=== PATIENT | male | born 1965 | race Caucasian/White ===

== ENCOUNTER 2020-08-11 22:31 | Emergency (ER) | payer BC ==
[2020-08-11] MEDS ORDERED: Ketorolac Tromethamine 30 MG/ML VIAL ONE (22:49)
[2020-08-11] MEDS ORDERED: Sodium Chloride 0.9% 1,000 ML ONE (22:49)
[2020-08-11] MEDS ORDERED: Ondansetron PF 4 MG/2 ML Vial ONE (22:49)
[2020-08-11 22:57] LABS: #Basophils 0.1 thou/uL (0.0-0.2); #Eosinphils 0.3 thou/uL (0.0-0.7); #Lymphocytes 2.9 thou/uL (1.20-3.40); #Monocytes 1.2 thou/uL (0.11-0.59); #Neutrophils 6.5 thou/uL (1.40-6.50); %Basophils 1.3 % (0.0-1.0); %Eosinophils 2.7 % (0.0-10.0); %Monocytes 11.2 % (0.0-10.0); %Neutrophils 58.7 % (42.0-75.0); Hemoglobin 15.6 g/dL (14.0-18.0); Mean Corpuscular HGB CONC 33.8 g/dL (32.0-36.0); Mean Corpuscular Hemoglobin 29.7 pg (27.0-31.0); Mean Corpuscular Volume 87.9 fL (78.0-98.0); Platelet Count 316 thou/uL (130-400); Red Blood Cell (RBC) Count 5.25 mill/uL (4.70-6.10); White Blood Cell (WBC) Count 11.1 thou/uL (4.8-10.8)
[2020-08-11 23:12] LABS: ALT (SGPT) 90 U/L (8-55); AST (SGOT) 86 U/L (5-34); Albumin 4.4 g/dL (3.5-5.0); Alkaline Phosphatase 33 U/L (40-110); Anion Gap 17 mmol/L (10-20); BUN (Urea Nitrogen) 15 mg/dL (8.4-25.7); Bilirubin, Total 0.3 mg/dL (0.2-1.2); Calc. Creatinine Clearance 0 mL/min (70-130); Calcium 9.4 mg/dL (7.8-10.44); Carbon Dioxide 20 mmol/L (22-29); Chloride 106 mmol/L (98-107); Globulin 2.5 g/dL (2.4-3.5); Glucose 131 mg/dL (70-105); Lipase 86 U/L (8-78); Potassium 4.3 mmol/L (3.5-5.1); Protein, Total 6.9 g/dL (6.0-8.3); Sodium 139 mmol/L (136-145)
[2020-08-11 23:49] LABS: Bilirubin Negative (Negative); Blood, Urine Large (Negative); Clarity Clear (Clear); Glucose, Urine (Dipstick) Negative (Negative); Ketone, Urine Negative (Negative); Leukocyte Negative (Negative); Nitrite Negative (Negative); Protein, Urine (Dipstick) Negative (Neg-Trace); Urobilinogen 0.2 mg/dL (Less than 2)
[2020-08-11 23:54] LABS: Bacteria/HPF None Seen HPF (None Seen); Squamous Epithelial None Seen HPF (0-3); WBC/HPF None Seen HPF (0-3)
[2020-08-12] MEDS ORDERED: Morphine 4 MG/ML VIAL ONE (00:34)
[2020-08-12] MEDS ORDERED: HYDROcodone/Acetaminophen 5/325 mg Tablet ONE (01:59)
== END 2020-08-12 02:25 | disposition home or self-care (01) ==
LOC: NAV ERS 22:31
DX: N13.2 Hydronephrosis with renal and ureteral calculous obstruction (principal); I10 Essential (primary) hypertension; Z79.82 Long term (current) use of aspirin
CPT/HCPCS: 71045; 74176; 80053; 81003; 81015; 83690; 84484; 85025; 93005; 96374; 96375; J1885; J2270; J2405; J7050

== ENCOUNTER 2021-02-26 16:19 | Emergency (ER) | payer BC, OTHER ==
[2021-02-26] MEDS ORDERED: Aspirin Chewable 81 MG TAB ONE (16:38)
[2021-02-26] MEDS ORDERED: Diltiazem 125 MG/25 ML ONE (16:38)
[2021-02-26] MEDS ORDERED: Sodium Chloride 0.9% 100 ML ONE (16:39)
[2021-02-26 16:53] LABS: #Basophils 0.4 thou/uL (0.0-0.2); #Eosinphils 0.3 thou/uL (0.0-0.7); #Lymphocytes 4.4 thou/uL (1.20-3.40); #Monocytes 1.1 thou/uL (0.11-0.59); #Neutrophils 7.4 thou/uL (1.40-6.50); %Basophils 2.9 % (0.0-1.0); %Eosinophils 1.9 % (0.0-10.0); %Lymphocytes 32.5 % (21.0-51.0); %Monocytes 8.2 % (0.0-10.0); %Neutrophils 54.4 % (42.0-75.0); Hemoglobin 18.3 g/dL (14.0-18.0); Mean Corpuscular HGB CONC 34.1 g/dL (32.0-36.0); Mean Corpuscular Hemoglobin 31.1 pg (27.0-31.0); Mean Corpuscular Volume 91.1 fL (78.0-98.0); Mean Platelet Volume 8.7 fL (7.4-10.4); Platelet Count 353 thou/uL (130-400); RBC Distribution Width 12.3 % (11.5-14.5); Red Blood Cell (RBC) Count 5.89 mill/uL (4.70-6.10); White Blood Cell (WBC) Count 13.6 thou/uL (4.8-10.8)
[2021-02-26 16:56] LABS: ALT (SGPT) 66 U/L (8-55); AST (SGOT) 47 U/L (5-34); Albumin 4.7 g/dL (3.5-5.0); Alkaline Phosphatase 34 U/L (40-110); Anion Gap 17 mmol/L (10-20); BUN (Urea Nitrogen) 12 mg/dL (8.4-25.7); Bilirubin, Total 0.7 mg/dL (0.2-1.2); CK (CPK) 1584 U/L (30-200); Calc. Creatinine Clearance 0 mL/min (70-130); Carbon Dioxide 22 mmol/L (22-29); Chloride 104 mmol/L (98-107); Globulin 3.7 g/dL (2.4-3.5); Glucose 156 mg/dL (70-105); Lipase 90 U/L (8-78); Magnesium 1.8 mg/dL (1.6-2.6); Potassium 4.3 mmol/L (3.5-5.1); Protein, Total 8.4 g/dL (6.0-8.3); Sodium 139 mmol/L (136-145)
[2021-02-26] MEDS ORDERED: Sodium Chloride 0.9% 1,000 ML ONE (17:10)
[2021-02-26] MEDS ORDERED: Enoxaparin Sodium 100 MG/ML SYRINGE ONE (18:10)
[2021-02-26 19:45] LABS: SARS-CoV-2 NAA Rapid Test Not Detected (NotDetected)
== END 2021-02-26 19:45 | disposition short-term general hospital (02) ==
LOC: NAV ERS 16:19
DX: I47.1 Supraventricular tachycardia (principal); F17.220 Nicotine dependence, chewing tobacco, uncomplicated; Z79.82 Long term (current) use of aspirin
CPT/HCPCS: 71045; 80053; 82550; 83690; 83735; 84443; 84484; 85025; 93005; 96365; 96366; 96372; 96376; J1650; J7050; U0002

== ENCOUNTER 2021-03-15 10:01 | Emergency (ER) | payer OTHER ==
[2021-03-15 10:39] LABS: #Basophils 0.1 thou/uL (0.0-0.2); #Eosinphils 0.1 thou/uL (0.0-0.7); #Lymphocytes 2.2 thou/uL (1.20-3.40); #Monocytes 0.8 thou/uL (0.11-0.59); #Neutrophils 6.1 thou/uL (1.40-6.50); %Basophils 1.3 % (0.0-1.0); %Eosinophils 1.1 % (0.0-10.0); %Lymphocytes 23.5 % (21.0-51.0); %Monocytes 8.5 % (0.0-10.0); %Neutrophils 65.6 % (42.0-75.0); Hemoglobin 16.5 g/dL (14.0-18.0); Mean Corpuscular HGB CONC 32.9 g/dL (32.0-36.0); Mean Corpuscular Hemoglobin 30.1 pg (27.0-31.0); Mean Corpuscular Volume 91.4 fL (78.0-98.0); Mean Platelet Volume 8.9 fL (7.4-10.4); Platelet Count 350 thou/uL (130-400); RBC Distribution Width 12.1 % (11.5-14.5); White Blood Cell (WBC) Count 9.3 thou/uL (4.8-10.8)
[2021-03-15 10:51] LABS: ALT (SGPT) 74 U/L (8-55); AST (SGOT) 51 U/L (5-34); Albumin 4.4 g/dL (3.5-5.0); Alkaline Phosphatase 28 U/L (40-110); Anion Gap 18 mmol/L (10-20); BUN (Urea Nitrogen) 14 mg/dL (8.4-25.7); Bilirubin, Total 0.6 mg/dL (0.2-1.2); CK (CPK) 1555 U/L (30-200); Calc. Creatinine Clearance 0 mL/min (70-130); Calcium 9.3 mg/dL (7.8-10.44); Carbon Dioxide 19 mmol/L (22-29); Chloride 103 mmol/L (98-107); Glucose 118 mg/dL (70-105); Magnesium 1.9 mg/dL (1.6-2.6); Potassium 3.8 mmol/L (3.5-5.1); Protein, Total 7.4 g/dL (6.0-8.3); Sodium 136 mmol/L (136-145)
== END 2021-03-15 12:25 | disposition home or self-care (01) ==
LOC: NAV ERS 10:01
DX: R06.00 Dyspnea, unspecified (principal); R74.8 Abnormal levels of other serum enzymes; Z87.891 Personal history of nicotine dependence; Z79.82 Long term (current) use of aspirin
CPT/HCPCS: 71045; 80053; 82550; 83735; 83880; 84484; 85025; 93005; 94760